=== PATIENT | female | born 1995 | race Hispanic/Latino ===

== ENCOUNTER 2023-06-13 16:03 | Emergency (ER) | payer SELFPAY ==
[2023-06-13] MEDS ORDERED: OXYCODONE-ACETAMINOPHEN 10-325 PO STA (16:25)
[2023-06-13] MEDS ORDERED: MOTRIN 600 MG PO ONE (16:25)
[2023-06-13] MEDS ORDERED: TYLENOL 325 MG PO ONE (16:25)
[2023-06-13 16:31] VITALS: PULSE 104; TEMP 98.7
[2023-06-13] MEDS ORDERED: TYLENOL 325 MG ONE (16:34)
[2023-06-13] MEDS ORDERED: OXYCODONE-ACETAMINOPHEN 10-325 ONE (16:34)
[2023-06-13 16:53] LABS: Absolute Neutrophil Ct (ANC) 8.55 x10^3/uL (1.4-6.9); BASOPHIL % 0.4 % (0.0-0.4); Basophil (Absolute #) 0.04 x10^3/uL (0-0.4); Eosinophil % 0.1 % (0.00-5.0); Eosinophil (Absolute #) 0.01 x10^3/uL (0-0.5); Hematocrit 38.6 % (35-47); Hemoglobin 12.1 g/dL (12.0-16.0); IMMATURE GRAN # 0.04 x10^3u/L (0.00-0.03); IMMATURE GRAN % 0.4 % (0.00-0.4); Lymphocyte (Absolute #) 0.96 x10^3/uL (1.0-4.6); Lymphocytes % 9.4 % (24.0-44.0); Mean Cell Volume 67.2 fL (78-100); Mean Corpuscular Hemoglobin 21.1 pg (26-32); Mean Corpuscular Hgb Concent. 31.3 g/dL (32-36); Mean Platelet Volume 9.2 fL (7.5-11.0); Monocytes % 5.9 % (0.0-12.0); Neutrophil % 83.8 % (36.0-66.0); Platelet Count 311 x10^3/uL (150-450); Red Blood Count 5.74 x10^6/uL (4.1-5.4); Red Cell Distribution Width 19.4 % (11.5-14.0); White Blood Count 10.2 x10^3/uL (4.0-10.5)
--- NOTE | 2023-06-13 16:57 | ERPHSYRPT ---
- History of Present Illness Time Seen by Provider: 06/13/23 16:54 Source: patient, family, factory representative Exam Limitations: no limitations Patient Subjective Stated Complaint: pt c/o of neck swelling and michael ear pain Triage Nursing Assessment: Pt brought to the ER by friends, vitals wnl, rates pain as 8/10, drainage from right ear per pt, swollen glands on neck under michael ears, slight sore throat, denies hurting when swallowing, denies cough, denies congestion Physician History: c/o of neck swelling and michael ear pain drainage from right ear per pt, swollen glands on neck under michael ears, slight sore throat, denies hurting when swallowing, denies cough, denies congestion Timing/Duration: gradual onset ENT Location: ear (R), ear (L), throat Associated Symptoms: ear pain (R), ear pain (L), ear drainage, swollen glands, sore throat Allergies/Adverse Reactions: No Known Drug Allergies Allergy (Verified 06/13/23 16:31) Travel Risk - International Travel Have you traveled outside of the country in past 3 weeks: No - Coronavirus Screening Are you exhibiting any of the following symptoms?: No Close contact with a COVID-19 positive Pt in past 14-21 Days: No - Vaccine Status Have you recieved a Covid-19 vaccination: No - Review of Systems Constitutional: No Fever, No Chills Eyes: No Symptoms Ears, Nose, & Throat: Ear Pain, Ear Discharge, Throat Pain Respiratory: No Cough, No Dyspnea Cardiac: No Chest Pain, No Edema, No Syncope Abdominal/Gastrointestinal: No Abdominal Pain, No Nausea, No Vomiting, No Diarrhea Genitourinary Symptoms: No Dysuria Musculoskeletal: No Back Pain, No Neck Pain Skin: No Rash Neurological: No Dizziness, No Focal Weakness, No Sensory Changes Psychological: No Symptoms Endocrine: No Symptoms All Other Systems: Reviewed and Negative - Past Medical History Pertinent Past Medical History: No - Past Surgical History Past Surgical History: Yes Female Surgical History: Section - Social History Smoking Status: Never smoker Exposure to second hand smoke: No Drug Use: none Patient Lives Alone: No - Female History Hx Now: No - Nursing Vital Signs Nursing Vital Signs: Initial Vital Signs Temperature 98.7 F 06/13/23 16:17 Pulse Rate 104 H 06/13/23 16:17 Blood Pressure 127/86 06/13/23 16:17 O2 Sat by Pulse Oximetry 98 06/13/23 16:17 Pain Scale Pain Intensity 8 - Physical Exam General Appearance: mild distress, alert Eye Exam: bilateral eye: PERRL, EOMI Ear Exam: bilateral ear: erythema, TM red Nasal Exam: normal inspection Throat Exam: pharynx normal, moist mucus membranes, No tonsillar exudate Neck Exam: supple Cardiovascular/Respiratory Exam: normal breath sounds, regular rate/rhythm Abdominal Exam: non-tender, soft Neurologic Exam: alert, oriented x 3, sensation nml, No motor deficits Skin Exam: normal color, warm, dry SpO2: 98 - Course Nursing assessment & vital signs reviewed: Yes Ordered Tests: Active Orders 24 hr Category Date Time Status BMP Stat Lab 06/13/23 16:40 Completed CBC W DIFF Stat Lab 06/13/23 16:40 Completed MONO SCREEN Stat Lab 06/13/23 16:40 Completed Medication Summary Discontinued Medications Generic Name Dose Route Start Last Admin Trade Name Thomasq PRN Reason Stop Dose Admin Acetaminophen 650 mg 06/13/23 16:25 06/13/23 16:36 Acetaminophen 325 Mg Tablet PO 06/13/23 16:26 650 mg STAT ONE Administration Acetaminophen Confirm 06/13/23 16:34 Acetaminophen 325 Mg Tablet Administered 06/13/23 16:35 Dose 650 mg .ROUTE .STK-MED ONE Ibuprofen 600 mg 06/13/23 16:25 06/13/23 16:37 Ibuprofen 600 Mg Tablet PO 06/13/23 16:26 Not Given STAT ONE Oxycodone/Acetaminophen 1 tab 06/13/23 16:25 06/13/23 16:36 Oxycodone / Apap 10/325 Mg 1 Tablet PO 06/13/23 16:26 1 tab STAT STA Administration Oxycodone/Acetaminophen Confirm 06/13/23 16:34 Oxycodone / Apap 10/325 Mg 1 Tablet Administered 06/13/23 16:35 Dose 1 tab .ROUTE .STK-MED ONE Lab/Rad Data: Laboratory Result Diagrams 06/13/23 16:40 06/13/23 16:40 Laboratory Results 06/13/23 06/13/23 06/13/23 Range/Units 16:40 16:40 16:40 WBC (4.0-10.5) x10^3/uL RBC (4.1-5.4) x10^6/uL Hgb (12.0-16.0) g/dL Hct (35-47) % MCV (78-100) fL MCH (26-32) pg MCHC (32-36) g/dL RDW (11.5-14.0) % Plt Count (150-450) x10^3/uL MPV (7.5-11.0) fL Gran % (36.0-66.0) % Immature Gran % (Auto) (0.00-0.4) % Nucleat RBC Rel Count (0.00-0.1) % Eos # (Auto) (0-0.5) x10^3/uL Immature Gran # (Auto) (0.00-0.03) x10^3u/L Absolute Lymphs (auto) (1.0-4.6) x10^3/uL Absolute Monos (auto) (0.0-1.3) x10^3/uL Absolute Nucleated RBC (0.00-0.01) x10^3u/L Lymphocytes % (24.0-44.0) % Monocytes % (0.0-12.0) % Eosinophils % (0.00-5.0) % Basophils % (0.0-0.4) % Absolute Granulocytes (1.4-6.9) x10^3/uL Basophils # (0-0.4) x10^3/uL Sodium (137-145) mmol/L Potassium (3.5-5.1) mmol/L Chloride (98-107) mmol/L Carbon Dioxide (22-30) mmol/L Anion Gap (5-15) MEQ/L BUN (7-17) mg/dL Creatinine (0.52-1.04) mg/dL Estimated GFR ML/MIN Glucose (74-106) mg/dL Calcium (8.4-10.2) mg/dL Monoscreen NEGATIVE (NEGATIVE) Influenza Type A Ag NEGATIVE (NEGATIVE) Influenza Type B Ag NEGATIVE (NEGATIVE) RSV (PCR) NEGATIVE (NEGATIVE) SARS-CoV-2 (PCR) NEGATIVE (NEGATIVE) Group A Strep Antibody NOT DETECTED (NEGATIVE) 06/13/23 06/13/23 Range/Units 16:40 16:40 WBC 10.2 (4.0-10.5) x10^3/uL RBC 5.74 H (4.1-5.4) x10^6/uL Hgb 12.1 (12.0-16.0) g/dL Hct 38.6 (35-47) % MCV 67.2 L (78-100) fL MCH 21.1 L (26-32) pg MCHC 31.3 L (32-36) g/dL RDW 19.4 H (11.5-14.0) % Plt Count 311 (150-450) x10^3/uL MPV 9.2 (7.5-11.0) fL Gran % 83.8 H (36.0-66.0) % Immature Gran % (Auto) 0.4 (0.00-0.4) % Nucleat RBC Rel Count 0.0 (0.00-0.1) % Eos # (Auto) 0.01 (0-0.5) x10^3/uL Immature Gran # (Auto) 0.04 H (0.00-0.03) x10^3u/L Absolute Lymphs (auto) 0.96 L (1.0-4.6) x10^3/uL Absolute Monos (auto) 0.60 (0.0-1.3) x10^3/uL Absolute Nucleated RBC 0.00 (0.00-0.01) x10^3u/L Lymphocytes % 9.4 L (24.0-44.0) % Monocytes % 5.9 (0.0-12.0) % Eosinophils % 0.1 (0.00-5.0) % Basophils % 0.4 (0.0-0.4) % Absolute Granulocytes 8.55 H (1.4-6.9) x10^3/uL Basophils # 0.04 (0-0.4) x10^3/uL Sodium 137 (137-145) mmol/L Potassium 4.0 (3.5-5.1) mmol/L Chloride 99 (98-107) mmol/L Carbon Dioxide 26 (22-30) mmol/L Anion Gap 14.9 (5-15) MEQ/L BUN 8 (7-17) mg/dL Creatinine 0.63 (0.52-1.04) mg/dL Estimated GFR 123.1 ML/MIN Glucose 121 H (74-106) mg/dL Calcium 9.3 (8.4-10.2) mg/dL Monoscreen (NEGATIVE) Influenza Type A Ag (NEGATIVE) Influenza Type B Ag (NEGATIVE) RSV (PCR) (NEGATIVE) SARS-CoV-2 (PCR) (NEGATIVE) Group A Strep Antibody (NEGATIVE) - Progress Progress: unchanged Counseled pt/family regarding: lab results, diagnosis, need for follow-up Medical Desision Making - Discussion of managment Reviewed:: Test results - Social Determinants of Health Pt's dx & treatment plan are significantly limited by SDOH: limited education Limited access to: transportation, medical care - Diagnostic Testing Diagnostic test were ordered, analyzed, and reviewed by me: Yes Radiological Interpretation: Reviewed by me - Departure Departure Disposition: Home Clinical Impression: Otitis media Qualifiers: Otitis media type: suppurative Chronicity: acute Laterality: bilateral Recurrence: non-recurrent Spontaneous tympanic membrane rupture: without spontaneous rupture Qualified Code(s): H66.003 - Acute suppurative otitis media without spontaneous rupture of ear drum, bilateral Condition: Stable Critical Care Time: No Referrals: DOCTOR,NO FAMILY [Primary Care Provider] - Follow up/PCP as directed Instructions: Ear Infections in Adults (DC) Additional Instructions: Discharge/Care Plan ANDREI VILLASENOR was seen on 06/13/23 in the Emergency Room. The patient was counseled regarding Diagnosis,Lab results, Imaging studies, need for follow up and when to return to the Emergency Room. Prescriptions given: Discharge Note I have spoken with the patient and/or caregivers. I have explained the patient's condition, diagnosis and treatment plan based on the information available to me at this time. I have answered the patient's and/or caregiver's questions and addressed any concerns. The patient and/or caregivers have as good understanding of the patient's diagnosis, condition and treatment plan as can be expected at this point. The vital signs have been stable. The patient's condition is stable and appropriate for discharge from the emergency department. The patient will pursue further outpatient evaluation with the primary care physician or other designated or consulting physician as outlined in the discharge instructions. The patient and/or caregivers are agreeable to this plan of care and follow-up instructions have been explained in detail. The patient and/or caregivers have received these instruction. The patient/and or caregivers are aware that any significant change in condition or worsening of symptoms should prompt an immediate return to this or the closest emergency department or call 911. ANDREI VILLASENOR was seen on 06/13/23 n the Emergency Room. At that time you were treated for an emergent condition, during your visit Laboratory, Ra diology and/or other procedures may have been ordered. It is very important that you follow-up with your Primary Care Physician NO FAMILY DOCTOR within the next 24-48 hours to review your Emergency Room visit and the final results of testing that was ordered. Some test results such as Urine Cultures, Blood Cultures, and other cultures if ordered will not be finalized for 24-48 hours. If you do not have a Primary Care Provider please call the medical records department at [phone] ext [phone] to obtain a copy of your results or you may sign into our patient portal to obtain these results by visiting us @ [email or web address] and completing the following steps: 1. Click on the Patient Portal link 2. Click the Patient Self Enrollment Link to complete the enrollment form and entering your 3. Once the enrollment form is completed you will receive an email with a temporary ID and password at the email address you provided. 4. Next choose a user name and password. Your user name must be at least 4 ch aracters long and your password must be at least 4 characters long. 5. Choose a security question from the list and provide your answer to the question. If you already have signed into the Health Portal you may access your Health Care Information 26/01 by the following steps: 1. Login to our website @ [email or web address] 2. Enter your original user name and password. FAQS The [facility] Health Portal is an online tool that contains your Lab Results, Radiology Reports, Visit History, Discharge Instructions and Health Summary Lab and Radiology Results will not be available for 72 hours on the portal. The Portal is a secure site, passwords are encryted and URLs are re-written so they cannot be copied and pasted. You and authorized family members are the only ones who can access your Portal. Also there is a timeout feature that protects your information if you leave the Portal page open. If you have technical difficulty please use the Contact Us link on the page this will allow you to submit any questions you have regarding the Portal or you may contact the Medical Record Department at [phone] ext [phone]. Prescriptions: Amoxicillin 500 mg Cap [Amoxil 500 mg] 500 mg PO TID #30 cap Danny/Baci/Poly/Hc Ear Solution* [CORTISPORIN EAR DROPS Solution 1OML] 10 ml OT QID #10 ml
[2023-06-13 17:11] VITALS: BP 112/92
[2023-06-13 17:11] LABS: ANION GAP 14.9 MEQ/L (5-15); Calcium 9.3 mg/dL (8.4-10.2); Creatinine 1 0.63 mg/dL (0.52-1.04); EST GLOMERULAR FILTRATION RATE 123.1 ML/MIN
[2023-06-13 17:26] VITALS: O2SAT 98
[2023-06-13 17:30] LABS: INFLUENZA A NEGATIVE (NEGATIVE); INFLUENZA B NEGATIVE (NEGATIVE); RESPIRATORY SYNCTIAL VIRUS NEGATIVE (NEGATIVE); SARS-CoV-2 Xpert Express NEGATIVE (NEGATIVE)
[2023-06-13] MEDS ORDERED: CORTISPORIN EAR DROPS 10 ML SUSPENSION OT ONE (17:56)
[2023-06-13] MEDS ORDERED: CORTISPORIN EAR DROPS 10 ML SUSPENSION OT SCH (22:00)
== END 2023-06-13 18:05 | disposition home or self-care (01) ==
LOC: ED 16:03
DX: H66.003 Acute suppurative otitis media without spontaneous rupture of ear drum, bilateral (principal); H92.03 Otalgia, bilateral; R59.0 Localized enlarged lymph nodes; J02.9 Acute pharyngitis, unspecified; Z28.310 Unvaccinated for COVID-19; Z55.9 Problems related to education and literacy, unspecified; Z75.9 Unspecified problem related to medical facilities and other health care; Z59.82 Transportation insecurity
CPT/HCPCS: 0241U; 36415; 80048; 85025; 86308; 87651; 99283; A9270-GY